=== PATIENT | male | born 1985 | race Caucasian/White ===

== ENCOUNTER 2020-12-26 01:09 | Emergency (ER) | payer MEDICAID, OTHER ==
[2020-12-26] MEDS ORDERED: OLANZapine 5 MG Tab PO ONE ×2 (01:43→02:25)
--- NOTE | 2020-12-26 01:51 | EDM.PDOCBH ---
<Jac Sharp - Last Filed: 12/26/20 06:52> ED HPI GENERAL MEDICAL PROBLEM - General Chief Complaint: Behavioral/Psych Stated Complaint: MENTAL Time Seen by Provider: 12/26/20 01:43 Source of Information: Reports: Patient History Limitations: Reports: No Limitations - History of Present Illness INITIAL COMMENTS - FREE TEXT/NARRATIVE: John is a 35-year-old male presenting to the ED with the [facility] for voluntary evaluation of psychosis. Tonight apparently he was found at his parents house having a conversation with her toilet. The patient lives 3 miles from the parent's house. The patient reports that for the last 12 to 18 months he has had severe depression. He does not like to take medications and has not been medicated for this. He did have an episode of psychoses 6 months ago where he was [place] between [place], [place] and [facility] and was placed on a 72-hour hold and sent to [facility] in [place]. We do not have any records of this. The patient reports that he has been having increasing suicidal thoughts for about the last 6 months and has been drinking heavily. He reports that initially he was drinking vodka which would make him blackout. He would be a very angry drunk while intoxicated so he switched to beer. He would drink a 12 pack at a time daily. He also sporadically uses methamphetamine. His last alcohol intake was 2 days ago and his last methamphetamine use was last week. He normally sees Dr. Parker Lucio in the [facility] clinic who put him on a blood pressure medicine for hypertension, the patient has not taken that for over a year. Does appear that he was on lisinopril 10 mg daily for his hypertension. During my interview with the patient he was very animated and agitated. He has rapid pressured speech and is very excitable. Attributing to the patient's stressors is recent of his sister who was killed in an ATV accident 2 weeks ago. Extended family is in town and this is causing considerable stress to the patient as the family is fighting amongst themselves. The patient is also having difficulty dealing with the loss of his sister which was an untimely . denies Pain Score (Numeric/FACES): 0 - Related Data Allergies Allergy/AdvReac Type Severity Reaction Status Date / Time No Known Allergies Allergy Verified 12/26/20 01:49 Home Meds: Home Meds lisinopriL [Prinivil] 10 mg PO DAILY 11/04/14 [History] ED ROS GENERAL - Review of Systems Review Of Systems: See Below Constitutional: Reports: No Symptoms HEENT: Reports: No Symptoms Respiratory: Reports: No Symptoms Cardiovascular: Reports: No Symptoms Endocrine: Reports: No Symptoms GI/Abdominal: Reports: No Symptoms : Reports: No Symptoms Musculoskeletal: Reports: No Symptoms Skin: Reports: No Symptoms Neurological: Reports: No Symptoms Psychiatric: Reports: Agitation, Anxiety, Depression, Hallucinations (Auditory), Mood Lability, Suicidal Ideation, Other (History of recent alcohol heavy use and intermittent methamphetamine use. Patient reports difficulty with sleep both initiating sleep and staying asleep stating that his brain is continually processing. He has had diminished appetite especially when he has been drinking. ) Hematologic/Lymphatic: Reports: No Symptoms Immunologic: Reports: No Symptoms Free Text/Narrative/Comment: Patient reports having difficulty with concentration and completing tasks especially over the last several months. He also notes that he is developed a very "short fuse" and becomes agitated very easily. ED EXAM, BEHAVIORAL HEALTH - Physical Exam Exam: See Below Exam Limited By: No Limitations General Appearance: Alert, Anxious, Mild Distress Eye Exam: Bilateral Eye: EOMI, PERRL Throat/Mouth: Normal Inspection Head: Atraumatic, Normocephalic Neck: Normal Inspection Respiratory/Chest: No Respiratory Distress, Lungs Clear, Normal Breath Sounds Cardiovascular: Normal Peripheral Pulses, Regular Rate, Rhythm, Tachycardia GI/Abdominal: Normal Bowel Sounds Back Exam: Normal Inspection Neurological: Alert, Normal Cognition, No Motor/Sensory Deficits, Oriented x 3 Psychiatric: Alert, Restless, Agitated, Poor Eye Contact, Suicidal Thoughts, Auditory Hallucinations, Pressured Speech COURSE, BEHAVIORAL HEALTH COMP - Course Re-Assessment/Re-Exam: I reviewed the records from [facility] emergency room dated 06/23/2020 for the patient when he was evaluated for exposure to the weather. At that time he was found improperly dressed for the weather walking through a swamp between [facility] and was brought to the hospital in [place] for evaluation. He was floridly psychotic at that time having auditory hallucinations, mumbling, and having conversations with himself. He was positive for amphetamines during his work-up at that time and it appears that he was also agitated and ended up getting a B-52 cocktail (5 of Haldol and 2 of Ativan. He was then kept on a 72- hour hold and transferred to [facility] for inpatient admission. I do not have any details of that admission. The patient has a pending court hearing for commitment for treatment for drug and alcohol use in his near future. Clearly today he appears to be frankly psychotic and agitated. I did give him Zyprexa 5 mg by mouth. We will start to look for admission for the patient. Medical Clearance: 12/26/20 03:41 reviewed the patient's labs and he is positive for methamphetamines and MDMA. His liver enzymes are significantly elevated at AST 269 and ALT of 275. 12/26/20 04:00 the patient is still sufficiently agitated and moving about the room despite receiving Zyprexa 10 mg p.o. As he is intoxicated currently on methamphetamine and MDMA, we will go ahead and give him Haldol 5 mg p.o. and lorazepam 2 mg p.o. We are currently searching for an inpatient bed for him for acute psychosis. His ethanol level is less than 3. He does have elevated transaminases likely due to his chronic alcohol use. Patient is currently voluntary but holdable. Discharge vs Psych Eval/Treatment:: 12/26/20 06:46 Ervin is experiencing acute psychosis with auditory hallucinations and agitation. He was given Zyprexa 10 mg p.o. but still remained fairly agitated so was followed by Haldol 5 mg p.o. and Ativan 2 mg p.o. Clearly patient needs inpatient stabilization at this point. I will place him on a 72-hour hold. [facility]'s states that they will have discharges today and may be able to take him. They request that we call back after 10 AM to check of bed status. Care of the patient will be turned over from Dr. Sharp to Dr. Christensenr at 0700 hrs awaiting placement. 12/26/20 06:52 Covid is negative. Departure - Departure Disposition: Home, Self-Care 01 Clinical Impression: Acute psychosis, Methamphetamine abuse, Methylenedioxymethyamphetamine (MDMA) use disorder, mild, Auditory hallucinations, Alcohol abuse - Discharge Information Referrals: PCP,None [Primary Care Provider] - Forms: ED Department Discharge Additional Instructions: Don' t do any drugs and avoid alcohol. F/U with your doctor for recheck within the week. - Problem List & Annotations (1) Acute psychosis SNOMED Code(s): 60216697, 19463987 Code(s): F23 - BRIEF PSYCHOTIC DISORDER Status: Acute Priority: High Current Visit: Yes (2) Methamphetamine abuse SNOMED Code(s): 339520265 Code(s): F15.10 - OTHER STIMULANT ABUSE, UNCOMPLICATED Status: Acute Priority: High Current Visit: Yes (3) Methylenedioxymethyamphetamine (MDMA) use disorder, mild SNOMED Code(s): 996562292 Code(s): F16.10 - HALLUCINOGEN ABUSE, UNCOMPLICATED Status: Acute Priority: High Current Visit: Yes (4) Auditory hallucinations SNOMED Code(s): 97603530 Code(s): R44.0 - AUDITORY HALLUCINATIONS Status: Acute Priority: High Current Visit: Yes (5) Alcohol abuse SNOMED Code(s): 89700814 Code(s): F10.10 - ALCOHOL ABUSE, UNCOMPLICATED Status: Acute Priority: High Current Visit: Yes - Problem List Review Problem List Initiated/Reviewed/Updated: Yes <Arsalan Ferguson G - Last Filed: 12/27/20 09:30> COURSE, BEHAVIORAL HEALTH COMP - Course Vital Signs: Last Vital Signs Temp 36.6 C 12/27/20 06:30 Pulse 77 12/27/20 06:30 Resp 16 12/27/20 06:30 BP 141/85 H 12/27/20 06:30 Pulse Ox 98 12/27/20 06:30 Orders, Labs, Meds: Laboratory Tests 12/26/20 12/26/20 12/26/20 Range/Units 02:21 02:21 02:21 WBC 7.0 (4.5-11.0) K/uL RBC 4.36 (4.30-5.90) M/uL Hgb 14.2 (12.0-15.0) g/dL Hct 42.7 (40.0-54.0) % MCV 98 (80-98) fL MCH 33 H (27-31) pg MCHC 33 (32-36) % Plt Count 231 (150-400) K/uL Neut % (Auto) 70 H (36-66) % Lymph % (Auto) 11 L (24-44) % [place] % (Auto) 18 H (2-6) % Eos % (Auto) 1 L (2-4) % Baso % (Auto) 0 (0-1) % Sodium 139 L (140-148) mmol/L Potassium 4.0 (3.6-5.2) mmol/L Chloride 102 (100-108) mmol/L Carbon Dioxide 24 (21-32) mmol/L Anion Gap 17.0 H (5.0-14.0) mmol/L BUN 9 (7-18) mg/dL Creatinine 0.8 (0.8-1.3) mg/dL Est Cr Clr Drug Dosing 149.84 mL/min Estimated GFR (MDRD) > 60 (>60) Glucose 94 (74-106) mg/dL Calcium 9.0 (8.5-10.1) mg/dL Total Bilirubin 1.1 H (0.2-1.0) mg/dL AST 269 H (15-37) U/L ALT 275 H (12-78) U/L Alkaline Phosphatase 109 (46-116) U/L Total Protein 7.4 (6.4-8.2) g/dL Albumin 3.9 (3.4-5.0) g/dL Globulin 3.5 (2.3-3.5) g/dL Albumin/Globulin Ratio 1.1 L (1.2-2.2) Urine Color (YELLOW) Urine Appearance (CLEAR) Urine pH (5.0-8.0) Ur Specific [place] (1.008-1.030) Urine Protein (NEGATIVE) mg/dL Urine Glucose (UA) (NEGATIVE) mg/dL Urine Ketones (NEGATIVE) mg/dL Urine Occult Blood (NEGATIVE) Urine Nitrite (NEGATIVE) Urine Bilirubin (NEGATIVE) Urine Urobilinogen (0.2-1.0) EU/dL Ur Leukocyte Esterase (NEGATIVE) Urine RBC (0-5) Urine WBC (0-5) Ur Epithelial Cells Amorphous Sediment Urine Bacteria Urine Mucus Urine Opiates Screen (NEGATIVE) Ur Oxycodone Screen (NEGATIVE) Urine Methadone Screen (NEGATIVE) Ur Propoxyphene Screen (NEGATIVE) Ur Barbiturates Screen (NEGATIVE) Ur Tricyclics Screen (NEGATIVE) Ur Phencyclidine Scrn (NEGATIVE) Ur Amphetamine Screen (NEGATIVE) U Methamphetamines Scrn (NEGATIVE) Urine MDMA Screen (NEGATIVE) U Benzodiazepines Scrn (NEGATIVE) U Cocaine Metab Screen (NEGATIVE) U Marijuana (THC) Screen (NEGATIVE) Ethyl Alcohol < 3 mg/dL Influenza Type A RNA (NEGATIVE) RSV RNA (INAAT) (NEGATIVE) Influenza Type B RNA (NEGATIVE) SARS-CoV-2 RNA (YOLANDA) (NEGATIVE) 12/26/20 12/26/20 12/26/20 Range/Units 03:24 03:24 04:30 WBC (4.5-11.0) K/uL RBC (4.30-5.90) M/uL Hgb (12.0-15.0) g/dL Hct (40.0-54.0) % MCV (80-98) fL MCH (27-31) pg MCHC (32-36) % Plt Count (150-400) K/uL Neut % (Auto) (36-66) % Lymph % (Auto) (24-44) % [place] % (Auto) (2-6) % Eos % (Auto) (2-4) % Baso % (Auto) (0-1) % Sodium (140-148) mmol/L Potassium (3.6-5.2) mmol/L Chloride (100-108) mmol/L Carbon Dioxide (21-32) mmol/L Anion Gap (5.0-14.0) mmol/L BUN (7-18) mg/dL Creatinine (0.8-1.3) mg/dL Est Cr Clr Drug Dosing mL/min Estimated GFR (MDRD) (>60) Glucose (74-106) mg/dL Calcium (8.5-10.1) mg/dL Total Bilirubin (0.2-1.0) mg/dL AST (15-37) U/L ALT (12-78) U/L Alkaline Phosphatase (46-116) U/L Total Protein (6.4-8.2) g/dL Albumin (3.4-5.0) g/dL Globulin (2.3-3.5) g/dL Albumin/Globulin Ratio (1.2-2.2) Urine Color Yellow (YELLOW) Urine Appearance Clear (CLEAR) Urine pH 5.5 (5.0-8.0) Ur Specific [place] 1.025 (1.008-1.030) Urine Protein Negative (NEGATIVE) mg/dL Urine Glucose (UA) Negative (NEGATIVE) mg/dL Urine Ketones Trace H (NEGATIVE) mg/dL Urine Occult Blood Negative (NEGATIVE) Urine Nitrite Negative (NEGATIVE) Urine Bilirubin Negative (NEGATIVE) Urine Urobilinogen 0.2 (0.2-1.0) EU/dL Ur Leukocyte Esterase Negative (NEGATIVE) Urine RBC 0-5 (0-5) Urine WBC 0-5 (0-5) Ur Epithelial Cells Rare Amorphous Sediment Not seen Urine Bacteria Few Urine Mucus Not seen Urine Opiates Screen Negative (NEGATIVE) Ur Oxycodone Screen Negative (NEGATIVE) Urine Methadone Screen Negative (NEGATIVE) Ur Propoxyphene Screen Negative (NEGATIVE) Ur Barbiturates Screen Negative (NEGATIVE) Ur Tricyclics Screen Negative (NEGATIVE) Ur Phencyclidine Scrn Negative (NEGATIVE) Ur Amphetamine Screen Presumptive positive H (NEGATIVE) U Methamphetamines Scrn Presumptive positive H (NEGATIVE) Urine MDMA Screen Presumptive positive H (NEGATIVE) U Benzodiazepines Scrn Negative (NEGATIVE) U Cocaine Metab Screen Negative (NEGATIVE) U Marijuana (THC) Screen Negative (NEGATIVE) Ethyl Alcohol mg/dL Influenza Type A RNA Negative (NEGATIVE) RSV RNA (INAAT) Negative (NEGATIVE) Influenza Type B RNA Negative (NEGATIVE) SARS-CoV-2 RNA (YOLANDA) Negative (NEGATIVE) Medications Discontinued Medications Generic Name Dose Route Start Last Admin Trade Name Freq PRN Reason Stop Dose Admin Clonidine HCl 0.2 mg 12/26/20 02:25 12/26/20 02:32 Clonidine 0.1 Mg Tab PO 12/26/20 02:26 0.2 mg ONETIME ONE Administration Haloperidol 5 mg 12/26/20 03:40 12/26/20 04:01 Haloperidol 5 Mg Tab PO 12/26/20 03:41 5 mg ONETIME ONE Administration Lorazepam 2 mg 12/26/20 03:40 12/26/20 04:01 Lorazepam 1 Mg Tab PO 12/26/20 03:41 2 mg ONETIME ONE Administration Olanzapine 5 mg 12/26/20 01:43 12/26/20 02:12 Olanzapine 5 Mg Tab PO 12/26/20 01:44 5 mg ONETIME ONE Administration Olanzapine 5 mg 12/26/20 02:25 12/26/20 02:46 Olanzapine 5 Mg Tab PO 12/26/20 02:26 5 mg ONETIME ONE Administration Re-Assessment/Re-Exam Time: 09:28 (is now alert and lucid, does not want to go to [place]. We are not able to place him in any psych facilities. Will d/c to home. ) Departure - Departure Time of Disposition: 09:29 Condition: Fair - Discharge Information *PRESCRIPTION DRUG MONITORING PROGRAM REVIEWED*: Not Applicable *COPY OF PRESCRIPTION DRUG MONITORING REPORT IN PATIENT RULA: Not Applicable Sepsis Event Note (ED) - Focused Exam Vital Signs: Vital Signs Temp Pulse Resp BP Pulse Ox 12/27/20 06:30 36.6 C 77 16 141/85 H 98
[2020-12-26] MEDS ORDERED: cloNIDine 0.1 MG Tab PO ONE (02:25)
[2020-12-26] MEDS ORDERED: Haloperidol 5 MG Tab PO ONE (03:40)
[2020-12-26] MEDS ORDERED: LORazepam 1 MG Tab PO ONE (03:40)
[2020-12-26 05:44] LABS: CORONAVIRUS COVID-19 NAA NEGATIVE (NEGATIVE)
[2020-12-27 06:30] VITALS: BP 141/85; PULSE 77
== END 2020-12-27 09:52 | disposition home or self-care (01) ==
LOC: JP.ED 01:09
DX: F23 Brief psychotic disorder (principal); F15.10 Other stimulant abuse, uncomplicated; F16.10 Hallucinogen abuse, uncomplicated; F10.10 Alcohol abuse, uncomplicated; Z79.899 Other long term (current) drug therapy; Z20.822 Contact with and (suspected) exposure to COVID-19
CPT/HCPCS: 0241U; 36415; 80053; 80305; 80307; 81001; 85025; 99285; A9270